=== PATIENT | female | born 1990 | race Caucasian/White ===

== ENCOUNTER 2020-11-20 09:35 | Outpatient (CLI) | payer BC, SELFPAY ==
[2020-11-20 11:01] LABS: Hemoglobin A1C 5.1 % (<5.7)
[2020-11-20 11:08] LABS: Free T4 Free Thyroxine 0.89 ng/mL (0.78-2.19)
[2020-11-22 10:51] LABS: LH 22.3 mIU/mL (***); Progesterone 0.5 ng/mL (***); Sex Hormone Binding Globulin 58 nmol/L (17-124)
[2020-11-22 11:10] LABS: DHEA-Sulfate 124 mcg/dL (18-391)
[2020-11-23 13:40] LABS: Testosterone Total 33 ng/dL (2-45)
[2020-11-24 06:20] LABS: FSH 5.2 mIU/mL (***)
[2020-11-25 22:39] LABS: Estradiol, Ultrasensitive 248 pg/mL
== END 2020-11-20 09:36 | disposition home or self-care (01) ==
PROVIDERS: PCP Family Medicine; Visit Provider Advanced Practice Midwife
DX: N92.6 Irregular menstruation, unspecified (principal)
CPT/HCPCS: 36415; 82627; 82670; 83001; 83002; 83036; 83498; 84144; 84146; 84270; 84403; 84439; 84443

== ENCOUNTER 2021-05-03 11:08 | Outpatient (RCR) | payer BC, SELFPAY ==
[2021-03-21 11:47] LABS: Beta HCG Quantitative 7.48 mIU/ML
[2021-03-23 11:43] LABS: Beta HCG Quantitative < 2.39 mIU/ML
[2021-03-24 08:44] LABS: Progesterone 41.2 ng/mL (***)
[2021-04-17 12:39] LABS: Beta HCG Quantitative 35.83 mIU/ML
[2021-04-19 12:26] LABS: Beta HCG Quantitative 110.04 mIU/ML
== END 2021-06-19 23:59 | disposition home or self-care (01) ==
LOC: ANHLAB 11:08
PROVIDERS: Referring Provider Advanced Practice Midwife; Visit Provider Obstetrics & Gynecology
DX: O20.0 Threatened abortion (principal); Z3A.00 Weeks of gestation of pregnancy not specified
CPT/HCPCS: 36415; 84144; 84702; 86850; 86900; 86901